=== PATIENT | male | born 1965 | race Caucasian/White ===

== ENCOUNTER 2022-04-01 09:28 | Observation (INO) | payer OTHER ==
[2022-04-01 09:58] LABS: Absolute Lymphocytes (CBC) 1.5 K/uL (0.7-4.9); Hematocrit 46.9 % (39.6-49.0); Lymphocytes % 16.7 % (15.3-44.8); MCV 86.3 fL (80-100); MPV 7.5 fL (7.6-11.3); RBC Red Blood Cell Count 5.43 M/uL (4.33-5.43)
[2022-04-01 10:01] LABS: Protime INR 1.03
[2022-04-01] MEDS ORDERED: ASPIRIN 81 MG CHEWABLE TABLET ONE (10:06)
[2022-04-01] MEDS ORDERED: NA CHLORIDE 0.9% 1,000 ML ONE (10:07)
[2022-04-01] MEDS ORDERED: METOPROLOL TAR 25 MG TAB ONE (10:07)
[2022-04-01 10:17] LABS: SARS-CoV-2 Antigen Rapid Res Negative (Negative)
--- NOTE | 2022-04-01 11:02 | ER ---
Nurse's Notes [facility] Name: Karl Isaac Age: 56 yrs Sex: Male : 1965 Arrival Date: 04/01/2022 Time: 09:31 Bed 20 Private MD: Diagnosis: Chest pain, unspecified;Weakness;Paresthesia of skin;Hyperglycemia, unspecified;Type 2 diabetes mellitus with hyperglycemia Presentation: 04/01 09:39 Chief complaint: Patient states: episodic L sided numbness only when over exerting self ss over the past 4 days. Coronavirus screen: Client denies travel out of the [place] in the last 14 days. Ebola Screen: Patient denies exposure to infectious person. Patient denies travel to an Ebola-affected area in the 21 days before illness onset. Initial Sepsis Screen: Does the patient meet any 2 criteria? No. Patient's initial sepsis screen is negative. Does the patient have a suspected source of infection? No. Patient's initial sepsis screen is negative. Risk Assessment: Do you want to hurt yourself or someone else? Patient reports no desire to harm self or others. Onset of symptoms was March 28, 2022. 09:39 Method Of Arrival: Ambulatory ss 09:39 Acuity: ALICE 3 ss Historical: - Allergies: 09:41 No Known Allergies; ss - Home Meds: 09:41 None [Active]; ss - PMHx: 09:41 None; ss - PSHx: 09:41 None; ss - Immunization history:: Client reports having NOT received the Covid vaccine. - Social history:: Smoking status: Patient denies any tobacco usage or history of. Patient uses alcohol, only on a social basis. Patient/guardian denies using alcohol. - Family history:: not pertinent. Screenin:45 Abuse screen: Denies threats or abuse. Nutritional screening: No deficits noted. aa5 Tuberculosis screening: No symptoms or risk factors identified. Fall Risk None identified. Assessment: 09:32 General: Appears comfortable, Behavior is calm, cooperative. Pain: Complains of pain in aa5 left lateral anterior chest Pain currently is 1 out of 10 on a pain scale. Quality of pain is described as "barely noticeable" Pain began 2-3 days ago. Is intermittent. Neuro: Level of Consciousness is awake, alert, obeys commands, Oriented to person, place, time, situation. Cardiovascular: Reports left arm numbness with exertion only x 3-4 days ago, some discomfort to left lateral aspect of chest that is mild. Heart tones S1 S2 present Rhythm is sinus rhythm. Respiratory: Airway is patent Respiratory effort is even, unlabored, Respiratory pattern is regular, symmetrical, Breath sounds are clear bilaterally. GI: Abdomen is round non-distended, Bowel sounds present X 4 quads. Abd is soft and non tender X 4 quads. : No signs and/or symptoms were reported regarding the genitourinary system. EENT: No signs and/or symptoms were reported regarding the EENT system. Derm: Skin is pink, warm \\T\\ dry. Musculoskeletal: Range of motion: intact in all extremities. 10:05 Reassessment: Patient is alert, oriented x 3, equal unlabored respirations, skin aa5 warm/dry/pink. Cardiovascular: Rhythm is sinus rhythm. 11:00 Reassessment: Patient is alert, oriented x 3, equal unlabored respirations, skin aa5 warm/dry/pink. Pain: Pain currently is 1 out of 10 on a pain scale. 12:09 Reassessment: (hospitalist) at bedside . aa5 12:10 Reassessment: Patient is alert, oriented x 3, equal unlabored respirations, skin aa5 warm/dry/pink. Pain: Denies pain. 12:10 Cardiovascular: Rhythm is sinus rhythm. aa5 13:30 Reassessment: Patient is alert, oriented x 3, equal unlabored respirations, skin aa5 warm/dry/pink. Pain: Denies pain. 14:30 Reassessment: Patient is alert, oriented x 3, equal unlabored respirations, skin aa5 warm/dry/pink. Patient denies pain at this time. 15:00 Reassessment: Unsuccessful attempt to call report to admitting nurse. . aa5 15:15 Reassessment: Patient is alert, oriented x 3, equal unlabored respirations, skin aa5 warm/dry/pink. Vital Signs: 09:39 BP 181 / 80; Pulse 61; Resp 16; Temp 98.2(TE); Pulse Ox 100% on R/A; Weight 86.18 kg; ss Height 5 ft. 7 in. (170.18 cm); Pain 0/10; 10:03 BP 152 / 86; Pulse 65; Resp 16 S; Pulse Ox 97% ; aa5 11:00 BP 133 / 88; Pulse 53; Resp 16 S; Pulse Ox 98% on R/A; aa5 13:30 BP 154 / 88; Pulse 55; Resp 18 S; Pulse Ox 100% on R/A; aa5 14:30 BP 153 / 84; Pulse 52; Resp 16 S; Temp 98.0(TE); Pulse Ox 99% on R/A; aa5 09:39 Body Mass Index 29.76 (86.18 kg, 170.18 cm) ED Course: 09:31 Patient arrived in ED. mr 09:32 Arm band placed on left wrist. Patient has correct armband on for positive aa5 identification. Placed in gown. Bed in low position. Call light in reach. Side rails up X2. 09:35 Brea Pollack, RN is Primary Nurse. aa5 09:40 Tang Quiroga MD is Attending Physician. [facility] 09:41 Triage completed. 09:41 EKG done, by ED staff, reviewed by Tang Quiroga MD. aa5 09:48 Initial lab(s) drawn, by pa, sent to lab. COVID swab sent to lab. Inserted saline lock: dh3 20 gauge in right forearm, using aseptic technique. Blood collected. 09:54 SARS RAPID Sent. dh3 10:44 XRAY Chest (1 view) In Process Unspecified. EDMS 11:01 Ryan Brown MD is Hospitalizing Provider. tung 12:02 US Carotid Artery Bilateral In Process Unspecified. EDMS 12:05 Brain Wo Cont In Process Unspecified. EDMS 15:15 Patient admitted, IV remains in place. aa5 15:15 No provider procedures requiring assistance completed. aa5 Administered Medications: 10:06 Drug: Aspirin Chewable Tablet 324 mg Route: PO; aa5 11:00 Follow up: Response: No adverse reaction aa5 10:06 Drug: Lopressor (metoprolol TARTRATE)) 25 mg Route: PO; aa5 11:00 Follow up: Response: No adverse reaction aa5 10:06 Drug: NS 0.9% 1000 ml Route: IV; Rate: 125 ml/hr; Site: right forearm; aa5 15:15 Follow up: IV Status: Infusion continued upon admission aa5 12:10 Drug: foLIC Acid 1 mg Route: IVPB; Site: right forearm; aa5 12:10 Drug: NS 0.9% 1000 ml Route: IV; Rate: 1 bolus; Site: right forearm; aa5 13:30 Follow up: IV Status: Completed infusion; IV Intake: 1000ml aa5 Medication: 15:15 VIS not applicable for this client. aa5 Intake: 13:30 IV: 1000ml; Total: 1000ml. aa5 Outcome: 11:02 Decision to Hospitalize by Provider. tung 15:15 Admitted to Tele accompanied by tech, family with patient, via wheelchair, with chart. aa5 15:15 Condition: stable 15:15 Instructed on the need for admit, Demonstrated understanding of instructions. 15:27 Patient left the ED. aa5 Signatures: Dispatcher [employer] EDTang Ballard MD MD cha Rivera, Marj pino Pollack, Brea, RN RN aa5 Trish Acosta RN RN Sarahi Garibay 3 Corrections: (The following items were deleted from the chart) 09:51 09:41 Arm band placed on left wrist. [facility] 09:51 09:41 Patient has correct armband on for positive identification. Placed in gown. Bed aa5 in low position. Call light in reach. Side rails up X2. aa5 10:08 10:06 BP 152 / 86; aa5 aa5
--- NOTE | 2022-04-01 11:02 | EDPHYS ---
Physician Documentation [facility] Name: Karl Isaac Age: 56 yrs Sex: Male : 1965 Arrival Date: 04/01/2022 Time: 09:31 Bed 20 Private MD: GREGG Physician Tang Quiroga HPI: 04/01 10:53 This 56 yrs old Male presents to ER via Ambulatory with complaints of Left [facility] Side Numbness. 10:53 The patient or guardian reports chest pain that is located primarily in the anterior [facility] chest wall, left. Onset: yesterday. left side numbness. The patient presents to the emergency department with paresthesias of the left lower extremity, left upper extremity. Onset: The symptoms/episode began/occurred yesterday. The pain radiates to the left arm. Context: occurred at home, at work. Associated signs and symptoms: Pertinent positives: near-syncope. Severity of symptoms: in the emergency department the symptoms are unchanged. Patient's baseline: Neuro:. Historical: - Allergies: 09:41 No Known Allergies; ss - Home Meds: 09:41 None [Active]; ss - PMHx: 09:41 None; ss - PSHx: 09:41 None; ss - Immunization history:: Client reports having NOT received the Covid vaccine. - Social history:: Smoking status: Patient denies any tobacco usage or history of. Patient uses alcohol, only on a social basis. Patient/guardian denies using alcohol. - Family history:: not pertinent. ROS: 10:53 Constitutional: Negative for fever, chills, and weight loss, Eyes: Negative for injury, tung pain, redness, and discharge, ENT: Negative for injury, pain, and discharge, Neck: Negative for injury, pain, and swelling, Cardiovascular: Negative for chest pain, palpitations, and edema, Respiratory: Negative for shortness of breath, cough, wheezing, and pleuritic chest pain, Abdomen/GI: Negative for abdominal pain, nausea, vomiting, diarrhea, and constipation, Back: Negative for injury and pain, : Negative for injury, bleeding, discharge, and swelling, Skin: Negative for injury, rash, and discoloration, Neuro: Negative for headache, weakness, numbness, tingling, and seizure, Psych: Negative for depression, anxiety, suicide ideation, homicidal ideation, and hallucinations, Allergy/Immunology: Negative for hives, rash, and allergies, Endocrine: Negative for neck swelling, polydipsia, polyuria, polyphagia, and marked weight changes, Hematologic/Lymphatic: Negative for swollen nodes, abnormal bleeding, and unusual bruising. 10:53 Back: 10:53 MS/extremity: Negative for acute changes. Exam: 10:53 Constitutional: This is a well developed, well nourished patient who is awake, alert, tung and in no acute distress. Head/Face: Normocephalic, atraumatic. Eyes: Pupils equal round and reactive to light, extra-ocular motions intact. Lids and lashes normal. Conjunctiva and sclera are non-icteric and not injected. Cornea within normal limits. Periorbital areas with no swelling, redness, or edema. ENT: Nares patent. No nasal discharge, no septal abnormalities noted. Tympanic membranes are normal and external auditory canals are clear. Oropharynx with no redness, swelling, or masses, exudates, or evidence of obstruction, uvula midline. Mucous membranes moist. Neck: Trachea midline, no thyromegaly or masses palpated, and no cervical lymphadenopathy. Supple, full range of motion without nuchal rigidity, or vertebral point tenderness. No Meningismus. Chest/axilla: Normal chest wall appearance and motion. Nontender with no deformity. No lesions are appreciated. Cardiovascular: Regular rate and rhythm with a normal S1 and S2. No gallops, murmurs, or rubs. Normal PMI, no JVD. No pulse deficits. Respiratory: Lungs have equal breath sounds bilaterally, clear to auscultation and percussion. No rales, rhonchi or wheezes noted. No increased work of breathing, no retractions or nasal flaring. Abdomen/GI: Soft, non-tender, with normal bowel sounds. No distension or tympany. No guarding or rebound. No evidence of tenderness throughout. Back: No spinal tenderness. No costovertebral tenderness. Full range of motion. Male : Normal genitalia with no discharge or lesions. Skin: Warm, dry with normal turgor. Normal color with no rashes, no lesions, and no evidence of cellulitis. MS/ Extremity: Pulses equal, no cyanosis. Neurovascular intact. Full, normal range of motion. Neuro: Awake and alert, GCS 15, oriented to person, place, time, and situation. Cranial nerves II-XII grossly intact. Motor strength 5/5 in all extremities. Sensory grossly intact. Cerebellar exam normal. Normal gait. Psych: Awake, alert, with orientation to person, place and time. Behavior, mood, and affect are within normal limits. 10:53 ECG was reviewed by the Attending Physician. Vital Signs: 09:39 BP 181 / 80; Pulse 61; Resp 16; Temp 98.2(TE); Pulse Ox 100% on R/A; Weight 86.18 kg; ss Height 5 ft. 7 in. (170.18 cm); Pain 0/10; 10:03 BP 152 / 86; Pulse 65; Resp 16 S; Pulse Ox 97% ; aa5 11:00 BP 133 / 88; Pulse 53; Resp 16 S; Pulse Ox 98% on R/A; aa5 13:30 BP 154 / 88; Pulse 55; Resp 18 S; Pulse Ox 100% on R/A; aa5 14:30 BP 153 / 84; Pulse 52; Resp 16 S; Temp 98.0(TE); Pulse Ox 99% on R/A; aa5 09:39 Body Mass Index 29.76 (86.18 kg, 170.18 cm) ss MDM: 09:40 Patient medically screened. tung 10:58 Differential diagnosis: abnormal EKG, acute myocardial infarction, coronary artery tung disease chest wall pain, congestive heart failure Cholelithiasis costochondritis, esophagitis, peptic ulcer disease, pneumonia, pulmonary embolus, stable angina, unstable angina. HEART Score: History: Moderately Suspicious (1), ECG: Non specific repolarization disturbance / LBTB / PM (1), Age: > 45 and < 65 years (1), Risk Factors: No Risk Factors Known (0), Troponin: < or = 1 x Normal Limit (0). The patient was given aspirin in the Emergency Department. The patient's deep vein thrombosis risk score was calculated as follows: Total Score: 0. This patient was found to be at low risk for a deep vein thrombosis by using the Well's assessment criteria. The patient's pulmonary embolism risk score was calculated as follows: Total Score: 0-2 points. This patient was found to be at low risk for a pulmonary embolism by using the Well's assessment criteria. GREGORY Risk Score: not applicable. Data reviewed: vital signs, nurses notes, lab test result(s), EKG, radiologic studies, CT scan, MRI, plain films. Data interpreted: monitor technician: rate is 65 beats/min, rhythm is regular, Pulse oximetry: on room air is 97 %. Test interpretation: by ED physician or midlevel provider: ECG, plain radiologic studies. 04/01 09:43 Order name: Basic Metabolic Panel [facility] 04/01 09:43 Order name: CBC with Diff [facility] 04/01 09:43 Order name: LFT's [facility] 04/01 09:43 Order name: Magnesium [facility] 04/01 09:43 Order name: NT PRO-BNP [facility] 04/01 09:43 Order name: PT-INR; Complete Time: 10:52 [facility] 04/01 09:43 Order name: Troponin HS [facility] 04/01 09:43 Order name: Lipase [facility] 04/01 09:43 Order name: SARS RAPID; Complete Time: 10:52 [facility] 04/01 12:04 Order name: CBC with Automated Diff [facility] 04/01 12:04 Order name: CBC with Automated Diff [facility] 04/01 12:04 Order name: Comprehensive Metabolic Panel [facility] 04/01 12:04 Order name: Comprehensive Metabolic Panel [facility] 04/01 12:04 Order name: Lipid Profile [facility] 04/01 09:43 Order name: XRAY Chest (1 view); Complete Time: 12:15 [facility] 04/01 09:43 Order name: EKG; Complete Time: 09:45 [facility] 04/01 10:52 Order name: US Carotid Artery Bilateral; Complete Time: 13:35 [facility] 04/01 11:19 Order name: Brain Wo Cont; Complete Time: 13:35 [facility] 04/01 12:04 Order name: Physical Therapy Consult [facility] 04/01 12:04 Order name: Echo with Doppler [facility] 04/01 12:04 Order name: Lipid Profile [facility] 04/01 12:04 Order name: Magnesium [facility] 04/01 12:04 Order name: Magnesium [facility] 04/01 12:04 Order name: Chest Pa And Lat (2 Views) [facility] 04/01 09:43 Order name: Cardiac monitoring; Complete Time: 09:44 [facility] 04/01 09:43 Order name: EKG - Nurse/Tech; Complete Time: 09:44 [facility] 04/01 09:43 Order name: IV Saline Lock; Complete Time: 09:44 [facility] 04/01 09:43 Order name: Labs collected and sent; Complete Time: :44 [facility] 04/01 09:43 Order name: O2 Per Protocol; Complete Time: : [facility] 04/01 09:43 Order name: O2 Sat Monitoring; Complete Time: : [facility] 04/01 12:04 Order name: Speech Therapy Consult [facility] 04/01 12:04 Order name: NPO [facility] 04/01 12:04 Order name: EKG Electrocardiogram [facility] EC:53 Rate is 52 beats/min. Rhythm is regular. QRS [place] is Normal. MI interval is normal. QRS tung interval is normal. QT interval is normal. No Q waves. T waves are Normal. No ST changes noted. Clinical impression: NSR w/ Non-specific ST/T Changes and No evidence of ischemia. Interpreted by me. Reviewed by me. Administered Medications: 10:06 Drug: Aspirin Chewable Tablet 324 mg Route: PO; aa5 11:00 Follow up: Response: No adverse reaction aa5 10:06 Drug: Lopressor (metoprolol TARTRATE)) 25 mg Route: PO; aa5 11:00 Follow up: Response: No adverse reaction aa5 10:06 Drug: NS 0.9% 1000 ml Route: IV; Rate: 125 ml/hr; Site: right forearm; aa5 15:15 Follow up: IV Status: Infusion continued upon admission aa5 12:10 Drug: foLIC Acid 1 mg Route: IVPB; Site: right forearm; aa5 12:10 Drug: NS 0.9% 1000 ml Route: IV; Rate: 1 bolus; Site: right forearm; aa5 13:30 Follow up: IV Status: Completed infusion; IV Intake: 1000ml aa5 Disposition Summary: 04/01/22 11:02 Hospitalization Ordered Hospitalization Status: Observation tung Provider: Ryan Brown cha Location: Telemetry/MedSurg (observation) tung Condition: Fair tung Problem: new tung Symptoms: have improved tung Bed/Room Type: Standard tung Room Assignment: 405(04/01/22 12:49) dw Diagnosis - Chest pain, unspecified tung - Weakness tung - Paresthesia of skin tung - Hyperglycemia, unspecified tung - Type 2 diabetes mellitus with hyperglycemia tung Forms: - Medication Reconciliation Form tung - SBAR form tung Signatures: Dispatcher [employer] [place], ROSAURA Salvador RN, Corey, MD MD cha Calderon, Audri RN RN aa5 Trish Acosta RN RN ss Corrections: (The following items were deleted from the chart) 11:19 10:53 MR STROKE PROTOCOL+MRI.RAD.BRZ ordered. EDMS EDMS 12:49 11:02 tung baer
--- NOTE | 2022-04-01 11:17 | RAD REPORT ---
EXAM DESCRIPTION: RAD - Chest Single View - 04/01/2022 10:42 am CLINICAL HISTORY: CHEST PAIN Chest pain. COMPARISON: No comparisons FINDINGS: Portable technique limits examination quality. The lungs are grossly clear. The heart is upper limit of normal in size. No displaced fractures. IMPRESSION: No acute intrathoracic process suspected.
[2022-04-01] MEDS ORDERED: ONDANSETRON 4 MG/2 ML VIAL IV PRN (11:59)
[2022-04-01] MEDS ORDERED: ACETAMINOPHEN 500 MG TAB PO PRN (11:59)
[2022-04-01] MEDS ORDERED: FOLIC ACID 5 MG/ML VIAL ONE (12:16)
--- NOTE | 2022-04-01 12:22 | RAD REPORT ---
EXAM DESCRIPTION: US - CP - 04/01/2022 12:00 pm CLINICAL HISTORY: TIA Headache, drowsiness, CVA symptomology COMPARISON: No comparisons TECHNIQUE: Real-time sonographic evaluation of both carotid systems was performed. Doppler interroga tion was performed with waveform tracing bilaterally. FINDINGS: Normal high resistance waveforms are noted in both external carotid arteries. The common c arotid arteries and internal carotid arteries show normal low resistance waveforms. No significant plaque formation is seen. Peak systolic and end diastolic velocity values and the ICA/ CCA ratios are in the non-hemodynamically significant range. Antegrade flow seen in both vertebral arteries. IMPRESSION: No significant atherosclerotic changes noted. No evidence of a hemodynamically significant stenosis.
[2022-04-01 12:38] LABS: Albumin 4.3 g/dL (3.4-5.0); Bilirubin Direct 0.2 mg/dL (0-0.2); Bilirubin Total 0.6 mg/dL (0.2-1.0); Magnesium 2.1 mg/dL (1.8-2.4); Potassium 3.9 mmol/L (3.5-5.1); Protein, Total 8.3 g/dL (6.4-8.2)
--- NOTE | 2022-04-01 12:47 | RAD REPORT ---
EXAM DESCRIPTION: MRI - Brain Wo Cont - 04/01/2022 12:03 pm CLINICAL HISTORY: cva Headache, drowsiness, CVA symptomology COMPARISON: No comparisons TECHNIQUE: Multi-sequence, multiplanar MR imaging of the brain was performed without contrast. FINDINGS: No intracranial hemorrhage, hydrocephalus or extra-axial fluid collections.Mild foci of T2 /FLAIR hyperintensity are noted in the periventricular region, greater on the left. While nonspecific , most likely, these represent sequela of mild chronic microvascular ischemic changes. No edema or sh ift of midline structures. No findings to suspect brain mass. DWI is negative for acute CVA. Midline structures are normally formed. Mastoid air cells and paranasal sinuses are clear. IMPRESSION: Negative for acute CVA or other acute intracranial abnormality.
[2022-04-01] MEDS ORDERED: AMLODIPINE 5 MG TAB PO ONE (14:00)
[2022-04-01 14:05] LABS: Troponin High Sensitivity 4.7 pg/mL (<58.9)
[2022-04-01] MEDS ORDERED: GLUCAGON 1 MG/VIAL IM PRN (15:20)
[2022-04-01] MEDS ORDERED: DEXTROSE 10%-WATER 500 ML IV BAG IV PRN (16:13)
[2022-04-01 16:22] VITALS: BMI 29.7
[2022-04-01] MEDS: INSULIN -REGULAR HUMAN 50 UNIT/0.5 ML ML SQ SCH ×2 (16:30→20:50)
[2022-04-01 16:35] VITALS: O2SAT 97
[2022-04-01] MEDS: NA CHLORIDE 0.9% 1,000 ML IV SCH (16:45)
[2022-04-01] MEDS: LOSARTAN POTASSIUM 50 MG TABLET PO SCH (20:53)
[2022-04-01] MEDS ORDERED: ATORVASTATIN 40 MG TAB PO SCH (21:00)
[2022-04-02] MEDS: NA CHLORIDE 0.9% 1,000 ML IV SCH (03:21)
[2022-04-02 04:09] LABS: Absolute Lymphocytes (CBC) 2.8 K/uL (0.7-4.9); Hematocrit 40.2 % (39.6-49.0); Lymphocytes % 40.7 % (15.3-44.8); MCV 85.7 fL (80-100); MPV 8.2 fL (7.6-11.3); RBC Red Blood Cell Count 4.69 M/uL (4.33-5.43)
[2022-04-02 04:35] LABS: Albumin 3.4 g/dL (3.4-5.0); Bilirubin Total 0.6 mg/dL (0.2-1.0); Potassium 3.8 mmol/L (3.5-5.1); Protein, Total 6.6 g/dL (6.4-8.2)
[2022-04-02] MEDS: INSULIN -REGULAR HUMAN 50 UNIT/0.5 ML ML SQ SCH (07:30)
[2022-04-02] MEDS ORDERED: glyBURIDE 2.5 MG TAB PO SCH ×2 (08:00→09:00)
[2022-04-02] MEDS ORDERED: METFORMIN HCL 500 MG TAB PO SCH (08:00)
[2022-04-02 08:50] VITALS: BP 136/75; TEMP 97.3
[2022-04-02] MEDS ORDERED: POTASSIUM CL SA 10 MEQ TAB PO ONE (09:00)
[2022-04-02] MEDS ORDERED: AMLODIPINE 10 MG TAB PO SCH (09:00)
[2022-04-02] MEDS ORDERED: CLOPIDOGREL 75 MG TABLET PO SCH (09:00)
[2022-04-02] MEDS ORDERED: ENOXAPARIN 40 MG/0.4 ML SQ SCH (09:00)
[2022-04-02] MEDS ORDERED: ASPIRIN EC 81 MG TAB PO SCH (09:00)
[2022-04-02] MEDS: LOSARTAN POTASSIUM 50 MG TABLET PO SCH (09:19)
--- NOTE | 2022-04-04 09:50 | ECHO ---
HEIGHT: 5 ft 7 in WEIGHT: 190 lb 0 oz DATE OF STUDY: 04/01/[address]: Ryan Brown MD 2-DIMENSIONAL: YES M.MODE: YES DOPPLER: YES COLOR FLOW: YES TDS: NO PORTABLE: YES DEFINITY: NO BUBBLE STUDY: NO DIAGNOSIS: STROKE CARDIAC HISTORY: CATHERIZATION: NO SURGERY: NO PROSTHETIC VALVE: NO PACEMAKER: NO MEASUREMENTS (cm) DIASTOLIC (NORMALS) SYSTOLIC (NORMALS) IVSd 1.0 (0.6-1.2) LA Diam 3.5 (1.9-4.0) LVEF 59% LVIDd 4.9 (3.5-5.7) LVIDs 3.3 (2.0-3.5) %FS 32% LVPWd 1.2 (0.6-1.2) Ao Diam 3.3 (2.0-3.7) 2 DIMENSIONAL ASSESSMENT: RIGHT ATRIUM: NORMAL LEFT ATRIUM: NORMAL RIGHT VENTRICLE: NORMAL LEFT VENTRICLE: NORMAL TRICUSPID VALVE: MITRAL VALVE: PULMONIC VALVE: NORMAL AORTIC VALVE: NORMAL PERICARDIAL EFFUSION: NONE AORTIC ROOT: NORMAL LEFT VENTRICULAR WALL MOTION: NORMAL DOPPLER/COLOR FLOW: MILD MITRAL AND TRICUSPID REGURGITATION. COMMENTS: NORMAL LEFT VENTRICULAR EJECTION FRACTION 55-60%. NORMAL WALL MOTION. MILD MITRAL AND TRICUSPID REGURGITATION. RECOMMEND BUBBLE STUDY. TECHNOLOGIST: Ariadna LAWRENCE
--- NOTE | 2022-04-04 15:11 | EKG ---
Test Date: 2022-04-01 Test Time: 09:36:08 Machine Cage Maker: ERIC MEASUREMENT RESULTS: Intervals: Rate: 62 MO: 138 QRSD: 92 QT: 404 QTc: 410 [place]: P: 54 MO: 138 QRS: 8 T: 36 INTERPRETIVE STATEMENTS: Normal sinus rhythm Nonspecific ST abnormality Abnormal ECG No previous ECG available for comparison Electronically Signed On 04-04-22 15:09:53 CDT by Francisco Javier Salomon
--- NOTE | 2022-04-19 02:46 | P.HP ---
Certification for Inpatient Patient admitted to: Observation With expected LOS: <2 Midnights Patient will require the following post-hospital care: None Practitioner: I am a practitioner with admitting privileges, knowledge of patient current condition, hospital course, and medical plan of care. Services: Services provided to patient in accordance with Admission requirements found in Title 42 Section 412.3 of the Code of Federal Regulations Patient History Date of Service: 04/01/22 History of Present Illness: patient is a 56-year-old gentleman who was admitted to the hospital with chest pain. Pain was mainly on the left side. Patient also has some left-sided numbness. Patient's pain radiated to the left arm with many add. Seizures to the left arm and legs. Patient also had a near-syncopal event. Patient was admitted to the hospital for further evaluation. Allergies No Known Allergies Allergy (Unverified 04/01/22 12:16) Home Medications: Amlodipine [Norvasc*] 10 mg PO DAILY #30 tab 04/02/22 Aspirin [Aspirin EC 81 MG] 81 mg PO DAILY #30 04/02/22 Atorvastatin Calcium [Lipitor] 40 mg PO BEDTIME #30 tab 04/02/22 Losartan Potassium [Cozaar] 50 mg PO BID #60 cap 04/02/22 Metformin HCl [Glucophage*] 500 mg PO BIDWM #60 tab 04/02/22 glyBURIDE [DIABETA or MICRONASE*] 2.5 mg PO BIDWM #60 tab 04/02/22 - Past Medical/Surgical History Has patient received pneumonia vaccine in the past: No -: Hypertension -: type 2 diabetes -: hyperlipidemia Past Surgical History: Patient denies surgical history - Family History Father Family History: Reviewed- Non-Contributory - Social History Smoking Status: Never smoker Alcohol use: Yes CD- Drugs: No Caffeine use: Yes Place of Residence: Home Review of Systems 10-point ROS is otherwise unremarkable Physical Examination - Vital Signs Temperature: 97.3 F Blood Pressure: 136/75 Pulse: 52 Respirations: 14 Pulse Ox (%): 94 - Physical Exam General: Alert, In no apparent distress, Oriented x3 HEENT: Atraumatic, PERRLA, Mucous membr. moist/pink, EOMI, Sclerae nonicteric Neck: Supple, 2+ carotid pulse no bruit, No LAD, Without JVD or thyroid abnormality Respiratory: Clear to auscultation bilaterally, Normal air movement Cardiovascular: Regular rate/rhythm, Normal S1 S2 Gastrointestinal: Normal bowel sounds, Soft and benign, Non-distended, No tenderness Musculoskeletal: No clubbing, No swelling, No tenderness Integumentary: No rashes Neurological: Normal gait, Normal speech, Normal strength at 5/5 x4 extr, Normal tone, Normal affect Lymphatics: No axilla or inguinal lymphadenopathy Assessment & Plan - Problems (Diagnosis) (1) Chest pain, rule out acute myocardial infarction Status: Acute (2) Left sided numbness Status: Acute - Plan 1. Serial troponins and EKG 2. Cardiology consultation 3. if troponins are negative and outpatient cardiology follow 4. Anti-platelet therapy, anti coagulation, beta-aaron, statin, and O2 as needed 5. IV morphine for pain 6. Nitro p.r.n. Discharge Plan: Home Plan to discharge in: 24 Hours - Advance Directives Does patient have a Living Will: No Does patient have a Durable POA for Healthcare: No - Code Status/Comfort Care Code Status Assessed: Yes Code Status: Full Code Critical Care: No Time Spent Managing PTS Care (In Minutes): 45
--- NOTE | 2022-04-19 02:49 | P.DS ---
Discharge Date: 04/02/22 Disposition: ROUTINE DISCHARGE Discharge Condition: GOOD - Problems (1) Chest pain, rule out acute myocardial infarction Status: Acute (2) Left sided numbness Status: Acute Brief History of Present Illness: patient is a 56-year-old gentleman who was admitted to the hospital with chest pain. Pain was mainly on the left side. Patient also has some left-sided nu mbness. Patient's pain radiated to the left arm with many add. Seizures to the left arm and legs. Patient also had a near-syncopal event. Patient was admitted to the hospital for further evaluation. Hospital Course: Patient has done well during hospital stay. Clinically, patient is much better. At this time, patient is stable for discharge home. Patient will foll ow-up with consultants and PCP as an outpatient. Vital Signs/Physical Exam: Temp Pulse Resp BP Pulse Ox 97.3 F 52 14 136/75 94 04/19/22 02:45 04/19/22 02:45 04/19/22 02:45 04/19/22 02:45 04/19/22 02:45 General: Alert, In no apparent distress, Oriented x3 Laboratory Data at Discharge: WBC 6.80 K/uL (4.3-10.9) D 04/02/22 03:32 Hgb 14.2 g/dL (13.6-17.9) 04/02/22 03:32 Hct 40.2 % (39.6-49.0) 04/02/22 03:32 Plt Count 224 K/uL (152-406) 04/02/22 03:32 PT 11.3 SECONDS (9.5-12.5) 04/01/22 09:47 INR 1.03 04/01/22 09:47 Sodium 138 mmol/L (136-145) 04/02/22 03:32 Potassium 3.8 mmol/L (3.5-5.1) 04/02/22 03:32 BUN 12 mg/dL (7-18) 04/02/22 03:32 Creatinine 0.81 mg/dL (0.55-1.3) 04/02/22 03:32 Glucose 213 mg/dL (74-106) H 04/02/22 03:32 Phosphorus 3.1 mg/dL (2.5-4.9) 04/02/22 03:32 Magnesium 2.0 mg/dL (1.8-2.4) 04/02/22 03:32 Total Bilirubin 0.6 mg/dL (0.2-1.0) 04/02/22 03:32 AST 29 U/L (15-37) 04/02/22 03:32 ALT 61 U/L (12-78) 04/02/22 03:32 Alkaline Phosphatase 70 U/L (45-117) 04/02/22 03:32 Triglycerides 138 mg/dL (<150) 04/02/22 03:32 Cholesterol 217 mg/dL (<200) H 04/02/22 03:32 HDL Cholesterol 37 mg/dL (40-60) L 04/02/22 03:32 Cholesterol/HDL Ratio 5.86 04/02/22 03:32 Lipase 347 U/L (73-393) 04/01/22 09:47 Home Medications: Amlodipine [Norvasc*] 10 mg PO DAILY #30 tab 04/02/22 Aspirin [Aspirin EC 81 MG] 81 mg PO DAILY #30 04/02/22 Atorvastatin Calcium [Lipitor] 40 mg PO BEDTIME #30 tab 04/02/22 Losartan Potassium [Cozaar] 50 mg PO BID #60 cap 04/02/22 Metformin HCl [Glucophage*] 500 mg PO BIDWM #60 tab 04/02/22 glyBURIDE [DIABETA or MICRONASE*] 2.5 mg PO BIDWM #60 tab 04/02/22 New Medications: Aspirin [Aspirin EC 81 MG] 81 mg PO DAILY #30 Losartan Potassium [Cozaar] 50 mg PO BID #60 cap glyBURIDE [DIABETA or MICRONASE*] 2.5 mg PO BIDWM #60 tab Metformin HCl [Glucophage*] 500 mg PO BIDWM #60 tab Atorvastatin Calcium [Lipitor] 40 mg PO BEDTIME #30 tab Amlodipine [Norvasc*] 10 mg PO DAILY #30 tab Physician Discharge Instructions: -DC IV and DC to home -Follow-up with PCP in 1 to 2 weeks -Follow-up with Neurology in 1 to 2 weeks -Please call Dr. Brown at [phone] if any questions regarding hospital stay -Please call nursing station at [phone] if any nursing or medication questions -Return to the emergency room if symptoms worsen Diet: AHA Activity: Fall precautions Followup: Mary Moreno FNP [Primary Care Provider] - (Call to schedule appointment) Time spent managing pt's care (in minutes): 35
== END 2022-04-02 10:55 | disposition home or self-care (01) ==
LOC: ER 09:28 → ERHOLD 11:59 → 4TH 15:15
PROVIDERS: ADMIT Hospitalist; ATTEND Hospitalist
DX: R07.9 Chest pain, unspecified (principal); R55 Syncope and collapse; I10 Essential (primary) hypertension; E11.9 Type 2 diabetes mellitus without complications; E78.5 Hyperlipidemia, unspecified; R20.0 Anesthesia of skin; Z20.822 Contact with and (suspected) exposure to COVID-19
CPT/HCPCS: 96361; 93005; 93306; 85025 ×2; 80048; 36415; 83735 ×2; 84100; 85610; 80061; 82947 ×3; 80076; 83036; 84484; 83690; 80053; 83880; 71045; 93880; 70551; 97161; 96374; 99285; 87811; J7030 ×4; G0378 ×3